=== PATIENT | female | born 1995 | race African-American/Black ===

== ENCOUNTER 2017-08-22 22:49 | Emergency (ER) | payer OTHER ==
[2017-08-22 23:28] LABS: Bilirubin Negative (Negative); Blood, Urine Negative (Negative); Glucose, Urine (Dipstick) Negative (Negative); Ketone, Urine Negative (Negative); Nitrite Negative (Negative); Protein, Urine (Dipstick) Trace mg/dL (Neg-Trace)
== END 2017-08-22 23:50 | disposition home or self-care (01) ==
LOC: ERS 22:49
DX: K52.9 Noninfective gastroenteritis and colitis, unspecified (principal)
CPT/HCPCS: 81003; 81025; 99284

== ENCOUNTER 2017-10-05 23:23 | Emergency (ER) | payer MEDICAID, OTHER | END 2017-10-06 00:29 | disposition home or self-care (01) | LOC: ERS 23:23 | DX: K29.70 Gastritis, unspecified, without bleeding (principal) | CPT/HCPCS: 99283 ==

== ENCOUNTER 2018-09-08 02:50 | Emergency (ER) | payer MEDICAID, OTHER ==
[2018-09-08] MEDS ORDERED: Ibuprofen 800 MG TAB ONE (03:05)
[2018-09-08] MEDS ORDERED: Cyclobenzaprine 10 MG TAB ONE (03:05)
== END 2018-09-08 03:12 | disposition home or self-care (01) ==
LOC: ERS 02:50
DX: M54.6 Pain in thoracic spine (principal); X50.1XXA Overexertion from prolonged static or awkward postures, initial encounter
CPT/HCPCS: 99283

== ENCOUNTER 2018-09-20 18:20 | Emergency (ER) | payer OTHER ==
--- NOTE | 2018-09-20 23:15 | RAD ---
THREE VIEWS THORACIC SPINE: 09/20/18 INDICATION: Back pain. COMPARISON: None. FINDINGS: No acute fracture or subluxation is evident. Spinal alignment is preserved. The visualized lungs are clear. IMPRESSION: No acute osseous abnormality. POS: AD
[2018-09-20 23:40] LABS: Pregnancy Test - Urine (BHCG) Negative (Negative); Pregu Control Background? CLEAR/WHITE (CLR/WHITE); Pregu Control Bar Appear? YES (CONTROL BAR); Specific Gravity 1.025 (1.002-1.036)
== END 2018-09-20 23:30 | disposition home or self-care (01) ==
LOC: ERS 18:20
DX: S29.012A Strain of muscle and tendon of back wall of thorax, initial encounter (principal); X50.0XXA Overexertion from strenuous movement or load, initial encounter; Y99.0 Civilian activity done for income or pay
CPT/HCPCS: 72072; 81025

== ENCOUNTER 2020-06-01 18:41 | Emergency (ER) | payer OTHER ==
[2020-06-02 15:27] LABS: SARS-CoV-2 MS2 Positive; SARS-CoV-2 N Gene Negative; SARS-CoV-2 S Gene Negative; SARS-CoV-2 orf1ab Negative
== END 2020-06-01 19:40 | disposition home or self-care (01) ==
LOC: ERS 18:41
DX: Z20.828 Contact with and (suspected) exposure to other viral communicable diseases (principal)
CPT/HCPCS: 87635; 99283; U0003

== ENCOUNTER 2021-03-10 17:50 | Emergency (ER) | payer OTHER ==
[2021-03-10 22:43] LABS: SARS-CoV-2 PCR by NAA Not Detected (NotDetected)
== END 2021-03-10 18:32 | disposition home or self-care (01) ==
LOC: ERS 17:50
DX: R05 Cough (principal); R19.7 Diarrhea, unspecified; Z20.822 Contact with and (suspected) exposure to COVID-19
CPT/HCPCS: 87635; 99284; U0003; U0005